=== PATIENT | female | born 1940 | race Caucasian/White ===

== ENCOUNTER 2018-05-20 05:27 | Day surgery (SDC) | payer OTHER ==
[~2018-05-20] VITALS: Ht 160 cm; Wt 65.8 kg
--- NOTE | ~2018-05-20 | EKG ---
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
--- NOTE | ~2018-05-20 | O ---
[facility] [address] OPERATIVE REPORT Name: ABDULLAHI PAIGE Room #: [facility] [place]#: [id number] Admission: 05/20/18 Attend Phys: Donovan Noguera MD Discharge: 05/20/18 Date of : 44 Report #: [id number] THIS REPORT FOR: //name// CC: Donovan Noguera Fatimah Warren DATE OF SERVICE: 05/20/2018 PREOPERATIVE DIAGNOSIS: Right great toe, failed first metatarsophalangeal joint arthroplasty. POSTOPERATIVE DIAGNOSIS: Right great toe, failed first metatarsophalangeal joint arthroplasty. PROCEDURE: Right great toe hardware removal with interposition arthroplasty of the metatarsophalangeal joint. SURGEON: Donovan Noguera MD. RETOUCHER: Aretha Sweeney. ANESTHESIA: General. ESTIMATED BLOOD LOSS: Minimal. DRAINS: None. TOURNIQUET TIME: 30 minutes. DESCRIPTION OF PROCEDURE: The patient brought to the operating room where she was placed under general anesthesia. Once under adequate general anesthesia, her right lower extremity was prepped and draped in sterile manner. The extremity was elevated, exsanguinated, tourniquet placed to 300 mmHg. A dorsal incision to the patient's previous scar was then made. Dissection was carried down to the metatarsophalangeal joint. The joint capsule was then incised exposing the joint. The joint fluid was cultured at this time. The patient did have loosening of both the proximal and distal portions of the implant. These were then resected with utilizing a rongeur and a [place] elevator to free both pieces of the implant from the bone. Once resected, the wound was irrigated copiously. Two stay sutures were placed in both the medial and lateral joint capsule with 0 Ethibond suture. A 4 x 7 Graftjacket was then fashioned to fit into the joint and was subsequently fixed into that position with 0 Ethibond. The stay sutures were then used to fix it into the joint space. The wound was irrigated copiously and closed with 2-0 Vicryl in the deep and subcutaneous tissues and vanessa were used for the skin. The wounds were dressed with Xeroform, 4 x 4s, and sterile soft compressive dressing was placed. Tourniquet [address] [address] OPERATIVE REPORT Name: ABDULLAHI PAIGE Room #: [facility] [place].R.#: [id number] Admission: 05/20/18 Attend Phys: Donovan Noguera MD Discharge: 05/20/18 Date of : 44 Report #: [id number] was let down approximately 30 minutes. Toes were pink and warm with good capillary refill. There were no complications from the procedure. The patient tolerated the procedure well and went to the recovery room without incident. <ELECTRONICALLY SIGNED> By: Donovan Noguera MD 05/22/18 1605 1013 1204 Donovan Noguera MD /robin
[~2018-05-20 05:27] MED LIST: ARIPIPRAZOLE5 MG PO; CHANTIX1 MG PO; CRESTOR20 MG PO; DIOVAN160 MG PO; EFFEXOR XR150 MG PO; IBANDRONATE SO150 MG PO; LEVOXYL150 MCG PO; NEURONTIN 400400 M1 PO; NEXIUM 40 MG CA40 M1 PO; OMEPRAZOLE40 MG PO; PERCOCET 10-321 EACH PO; PROAIR HFA8.5 GM PO; TRAZODONE HCL100 MG PO; VALSARTAN-HCTZ1 EAC1 PO; VENTOLIN HFA 1818 GM INH; XANAX 0.25 MG0.25 MG PO; [UNRECOGNIZED DRUG - OTHER] PO
[2018-05-20 08:24] LABS: CALCIUM 9.4 mg/dL (8.5-10.1); CREATININE 0.9 mg/dL (0.6-1.0); POTASSIUM 3.9 mmol/L (3.5-5.1)
[2018-05-20 09:01] VITALS: BP 126/67
[2018-05-20] MEDS ORDERED: PERCOCET 7.5-31 EACH PO (10:07)
[2018-05-20 10:25] VITALS: BP 126/67
== END 2018-05-20 11:50 | disposition home or self-care (01) ==
LOC: OR 05:27 → TBA 05:27 → OR 09:50
PROVIDERS: Orthopaedic Surgery Foot and Ankle Surgery
DX: T84.098A Other mechanical complication of other internal joint prosthesis, initial encounter (principal); M25.571 Pain in right ankle and joints of right foot; I10 Essential (primary) hypertension; E03.9 Hypothyroidism, unspecified; J43.9 Emphysema, unspecified; G47.33 Obstructive sleep apnea (adult) (pediatric); E78.5 Hyperlipidemia, unspecified; K21.9 Gastro-esophageal reflux disease without esophagitis; F41.9 Anxiety disorder, unspecified; F32.9 Major depressive disorder, single episode, unspecified; F17.210 Nicotine dependence, cigarettes, uncomplicated; M19.90 Unspecified osteoarthritis, unspecified site; Z98.890 Other specified postprocedural states; Z91.041 Radiographic dye allergy status; Z90.710 Acquired absence of both cervix and uterus; Z98.42 Cataract extraction status, left eye; Z96.653 Presence of artificial knee joint, bilateral; Z88.8 Allergy status to other drugs, medicaments and biological substances; Z79.899 Other long term (current) drug therapy; Y83.8 Other surgical procedures as the cause of abnormal reaction of the patient, or of later complication, without mention of misadventure at the time of the procedure
CPT/HCPCS: 50010; 50101; 50386; 55430; 56524; 56526; 56527; 56528; 57091; 62110; 62900; 70005